=== PATIENT | female | born 1985 ===

== ENCOUNTER 2018-08-10 15:09 | Emergency (ER) | payer OTHER ==
[~2018-08-10] VITALS: Ht 172.7 cm; Wt 70.8 kg
== END 2018-08-10 21:36 | disposition home or self-care (01) ==
LOC: ER 15:09
DX: N93.8 Other specified abnormal uterine and vaginal bleeding (principal)

== ENCOUNTER 2018-10-29 10:01 | Outpatient (CLI) | payer OTHER | END 2018-10-29 11:41 | disposition home or self-care (01) | LOC: LAB 10:01 | DX: D50.0 Iron deficiency anemia secondary to blood loss (chronic) (principal); N93.8 Other specified abnormal uterine and vaginal bleeding; D25.9 Leiomyoma of uterus, unspecified; D68.8 Other specified coagulation defects; D68.0 Von Willebrand disease ==